=== PATIENT | female | born 1940 | race Caucasian/White ===

== ENCOUNTER 2018-01-05 17:50 | Emergency (ER) | payer OTHER ==
--- NOTE | 2018-01-05 18:10 | PDOC ---
Attending Attestation - Resident Resident Name: Black,Fozia - ED Attending Attestation I have performed the following: I have examined & evaluated the patient, The case was reviewed & discussed with the resident, I agree w/resident's findings & plan, Exceptions are as noted - HPI HPI: 77 yo F history ESRD on HD brought in by EMS in cardiac arrest. She had a full dialysis treatment today at [facility], returned to her room, and was found down approximately 5 minutes later. As per EMS and family at bedside, she was not ill recently. However, family does note that she has been having problems with hypotension, particularly after dialysis, so she has to avoid blood pressure medication. - Physicial Exam PE: GENERAL: Unresponsive. Intubated. Pale. HEAD: No signs of trauma EYES: Pupils mid-dilated and nonreactive. ENT: Auricles normal inspection, hearing grossly normal, nares patent, oropharynx clear without exudates. Dry mucosa NECK: Normal ROM, supple. +Healing scar to R neck. LUNGS: Equal breath sounds B/L. HEART: No audible heart sounds. ABDOMEN: Soft. No masses EXTREMITIES: Normal range of motion, no edema. No clubbing or cyanosis. No cords, erythema, or tenderness NEUROLOGICAL: Unresponsive. SKIN: Warm, Dry, normal turgor, no rashes or lesions noted. - Medical Decision Making Pt arrived in cardiac arrest, CPR via Carrington device in progress. Patient was down for approximately 30 minutes prior to EMS arrival. They gave multiple rounds of medication including epi, bicarb, magnesium, atropine, calcium, and amiodarone; no change in status. In ED, we confirmed ETT placement, it was in place. Bedside echo showed no cardiac motion. ACLS protocol was continued for another round, bedside echo remained the same. At this point any further resuscitation was deemed futile, as patient had had multiple interventions with no change and was in arrest for more than 30 minutes at that point. Her two sons arrived with EMS, I notified them in person at time of .
[2018-01-05 18:23] VITALS: BP 0/0; PULSE 0; BMI 19.5
--- NOTE | 2018-01-05 18:57 | PDOC ---
History of Present Illness - General Chief Complaint: Cardiac Arrest Stated Complaint: CARDIAC ARREST Time Seen by Provider: 01/05/18 18:01 History Source: EMS, Family Exam Limitations: Clinical Condition - History of Present Illness Initial Comments: 01/05/18 17:48 (Exact time of patient arrival to the ED) This is a 77 YOF with h/o ESRD on HD (had full tx today), hypotension of hemodialysis, CHF, Type-2 DM, and GERD, who was BIBEMS from her [facility] where she was found unresponsive shortly after returning to their facility from HD this afternoon. EMS notes that they started CPR immediately and transferred to the Carrington device. They found her to be in asystole on the monitor and administered epinephrine, magnesium, amiodarone, calcium, atropine, and bicarbonate without ROSC. The patient has been unconscious for approximately 30 minutes by the time she arrives to the ED. The patient's sons Jorge and Samson are in the ED. Past History - Past Medical History Allergies/Adverse Reactions: Allergies Allergy/AdvReac Type Severity Reaction Status Date / Time Penicillins Allergy Verified 01/05/18 18:10 COPD: No Diabetes: Yes Dialysis: Yes GI Disorders: Yes (gerd) HTN: Yes Hypercholesterolemia: Yes - Suicide/Smoking/Psychosocial Hx Smoking History: Never smoked Have you smoked in the past 12 months: No Information on smoking cessation initiated: No Hx Alcohol Use: No Drug/Substance Use Hx: No Review of Systems - Review of Systems Able to Perform ROS?: No (unconscious) *Physical Exam - Vital Signs Last Vital Signs Temp Pulse Resp BP Pulse Ox 0 L 0 L 0/0 01/05/18 18:10 01/05/18 18:10 01/05/18 18:10 - Physical Exam General Appearance: Yes: Other (unconscious, ET tube in place and patient is being Ambu-Bagged, CPR in process via Carrington device) HEENT: positive: Other (Pupils fixed and dilated) Respiratory/Chest: positive: Other (ET tube in place, patient being Ambu-Bagged , no spontaneous respirations or agonal respirations) Cardiovascular: positive: Other (No heart sounds auscultated, skin mottling, cold and clammy extremities) Comments:: No pulses palpated Gastrointestinal/Abdominal: negative: Organomegaly, Distended, Mass Musculoskeletal: positive: Other (BLE muscle wasting) Extremity: positive: Normal Capillary Refill, Coldness Integumentary: positive: Mottled, Pale, Cold, Clammy Neurologic: positive: Other (GCS 3). negative: Respond to painful stimul Medical Decision Making - Medical Decision Making Pt p/w cardiopulmonary arrest. Initial Vital Signs Pulse Resp BP 0 L 0 L 0/0 01/05/18 18:10 01/05/18 18:10 01/05/18 18:10 Exam: As noted in Physical Exam section. Unconscious, CPR ongoing, cool and mottled extremities, no spontaneous pulses palpable POCUS: No cardiac activity identified, no pericardial effusion on bedside echo DDX IBNLT: Hypovolemia, hypoxemia, H+ ions (acidosis), hyperkalemia, hypokalemia , hypoglycemia, hypothermia, tamponade, tension PTX, thrombosis (SC or PE), trauma, toxins (e.g. toxic overdose) W/U ordered: Monitor TX ordered: One more round of Epi IVPUSH, continued CPR, AmbuBag Procedures done: ET tube was checked and found in good placement. PT 17:53. ROSC is not achieved and the Pt is pronounced at Diagnosis on expiration is cardiopulmonary arrest 2/2 ESRD. Family is notified immediately and questions are answered. I spoke with Kierra RN service center representative for the patient's unit and gave her relevant information. I also spoke with the patient's PCP Dr. Ora Crews who is aware. Completed all paperwork required for this patient's expiration. Dr. Lynn has completed the Certificate. 01/05/18 18:50 Spoke with Phan Padgett, Office of the [employer]. Determined not to be a ME case. Record number is [id number]. *DC/Admit/Observation/Transfer Diagnosis at time of Disposition: Cardiac arrest, ESRD (end stage renal disease) - Discharge Dispostion Disposition: Condition at time of disposition: Decision to Admit order: No - Referrals Referrals: Gary Crews MD [Primary Care Provider] - - Patient Instructions - Post Discharge Activity
== END 2018-01-05 19:46 | disposition expired ==
LOC: JER 17:50
PROC: 5A02216 Assistance with Cardiac Output using Other Pump, Continuous (ICD-10-PCS; principal; 2018-01-05)
DX: I46.9 Cardiac arrest, cause unspecified (principal); I13.2 Hypertensive heart and chronic kidney disease with heart failure and with stage 5 chronic kidney disease, or end stage renal disease; E11.22 Type 2 diabetes mellitus with diabetic chronic kidney disease; N18.6 End stage renal disease; I50.89 Other heart failure; N17.8 Other acute kidney failure; Z99.2 Dependence on renal dialysis; I95.3 Hypotension of hemodialysis; K21.9 Gastro-esophageal reflux disease without esophagitis
CPT/HCPCS: 92950; 99285-25